=== PATIENT | male | born 2005 | race Caucasian/White ===

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

== ENCOUNTER → 2023-05-29 08:19 | Outpatient (CLI) | payer OTHER, SELFPAY ==
[2023-05-29 09:34] LABS: COVID-19 CEPHEID 4-PLEX PCR Negative (Negative); Influenza A - CEPHEID Flu A NEGATIVE (NEGATIVE); Influenza B - CEPHEID Flu B NEGATIVE (NEGATIVE); Respiratory Syncytial Virus Negative (Negative)
== END ==
PROVIDERS: PCP Family Medicine; Visit Provider Nurse Practitioner Family
DX: R00.0 Tachycardia, unspecified (principal); R63.0 Anorexia; R68.89 Other general symptoms and signs
CPT/HCPCS: 0241U

== ENCOUNTER 2023-05-29 09:04 | Emergency (ER) | payer OTHER, SELFPAY ==
[2023-05-29 09:08] VITALS: BP 138/98; PULSE 110; RESP 20; TEMP 36.7; O2SAT 99; BMI 17.0
--- NOTE | 2023-05-29 09:09 | PC.NURSE ---
Pt reports increase to medicine 2mg to 4mg ambilify. Pt states he had been taking ambilify for 2 weeks and had a medication increase one week ago. Pt reports increased anxiety, intermittent blurred vision, dry mouth, and retraction when peeing. Walk in clinic brought pt here for further eval. Pt alert and oriented.
--- NOTE | 2023-05-29 09:48 | ED.RECABL ---
HPI - Recheck/Abnormal Lab/Rx General Chief Complaint: Recheck/Abnormal Lab/Rx Stated Complaint: [facility] Time Seen by Provider: 05/29/23 09:10 Source: patient Mode of arrival: Wheelchair History of Present Illness HPI narrative: Patient 17-year-old history of anxiety, insomnia, eating disorder, depression presents today with palpitations. He recently had his Abilify dose increased from 2 mg to 4 mg. That happened 1 week ago. He reports not being able to sleep for a number of days. He feels like his heart is racing. He has some difficulty with urination but he is still able to urinate. He has no dizziness or lightheadedness. He is noted to be mildly tachycardic here in the ED He reports that he tried mirtazapine to help him sleep but anything like Benadryl or melatonin generally does not help him. He reports he did try marijuana but it had the opposite effect. Related Data Previous Rx's Medication Instructions Recorded fluticasone propionate 50 1 spray intranasal BID #16 grams 09/05/20 mcg/actuation nasal spray,suspension (Flonase Allergy Relief) sumatriptan succinate 25 mg tablet 25 mg PO PRN PRN Migraine Headache 11/13/22 (Imitrex) #30 tabs hydroxyzine HCl 25 mg tablet 25 mg PO QID PRN anxiety #30 tabs 01/14/23 olanzapine 10 mg tablet 10 mg PO DAILY #30 tabs 01/27/23 mirtazapine 15 mg tablet 15 mg PO BEDTIME #90 tabs 02/10/23 bupropion HCl 300 mg 24 hr tablet, 300 mg PO QAM #30 tabs 05/12/23 extended release lorazepam 1 mg tablet (Ativan) 1 mg PO BEDTIME PRN sleep #1 tab 05/29/23 Allergies Allergy/AdvReac Type Severity Reaction Status Date / Time No Known Drug Allergies Allergy Verified 05/29/23 08:12 Patient History Medical History Depression Migraine with aura and without status migrainosus, not intractable (05/05/17) Social History Smoking Status: Never smoker second hand exposure: No alcohol intake: never substance use type: does not use Smoking Status: Never smoker tobacco type: cigarettes alcohol intake frequency: 0-2 drinks per day Substance Use Type: marijuana Exam Initial Vital Signs Initial Vital Signs: Vital Signs Temperature 98.1 F 05/29/23 09:08 Pulse Rate 110 H 05/29/23 09:08 Respiratory Rate 20 05/29/23 09:08 Blood Pressure 138/98 H 05/29/23 09:08 Pulse Oximetry 99 05/29/23 09:08 Oxygen Delivery Method Room Air 05/29/23 09:08 GENERAL: Thin 17-year-old male HEENT: Head atraumatic,EOMI, pupils reactive, face symmetric, dry mucous membranes CARDIOVASCULAR: Tachycardic no murmurs regular RESPIRATORY: Breath sounds equal bilaterally, no wheezes rales or rhonchi. ABDOMEN: Soft, nontender. Normoactive bowel sounds all 4 quadrants. No guarding or rebound. EXTREMITIES: Normal range of motion, no clubbing or edema. Neurovascularly intact NEUROLOGICAL: Alert and oriented x4.Normal gait and speech. Cranial nerves II through XII grossly intact. SKIN: Warm, dry, no laceration, no petechiae, no rashes or lesions. Course Vital Signs Vital signs: Vital Signs - 8 hr 05/29/23 09:08 05/29/23 10:05 05/29/23 10:14 Temperature 98.1 F 98 F Pulse Rate 110 H 99 H 92 H Respiratory Rate 20 20 Blood Pressure 138/98 H 136/79 Pulse Oximetry 99 96 100 Oxygen Delivery Method Room Air Room Air MDM - Recheck/Abnormal Lab/Rx MDM Narrative Medical decision making narrative: Patient 17-year-old male presents today with palpitations. He is noted to be mildly tachycardic which slowly improve. He has continued insomnia which from records he has had previously. Lips are slightly dry. He does report some blurry vision which is a side effect of Abilify along with restlessness fatigue anxiety insomnia and headache. I suspect that he is reacting to his increased dose of Abilify. He has an appointment PCP in 3 days. At this time I recommend he go back to his Abilify 2 mg. I will give him 1 tablet of Ativan to help him relax and go to sleep. Heart rate initially was in the 130s however decreased to 110 and while I was in the room it was in the 90s. Discharge Plan Departure Patient Disposition: Home Clinical Impression: Adverse drug reaction Instructions: DI for Adverse Drug Reaction -- Other Activity Restrictions/Additional Instructions: *You have been diagnosed with drug reaction *What to do: At this time I think some of her symptoms are definitely related to the increase in your Abilify. Decreased her Abilify back to the regular dose. See your primary care doctor on Thursday. We will be 1 tablet of Ativan to help you sleep. *Continue to take medications as directed Abilify 2 mg daily (stop the 4 mg) Ativan 1 mg take once to help with sleep, be only get 1 tablet -do not drive while taking *Follow up with your primary care provider in 2-3 days or call [phone] *Return to ER if you should have increasing palpitations dizziness lightheadedness passing out or any new, worsening or concerning symptoms CONTROLLED SUBSTANCE DISCHARGE (Narcotoic/benzodiazepine/Flexeril/Phenergan) 1. You have been prescribed narcotic medications, it does have acetaminophen/Tylenol/paracetamol in it, DO NOT TAKE MORE THAN 4,00mg in 24 hours of Tylenol. TRAMADOL DOES NOT CONTAIN TYLENOL 2. Please understand that we cannot provide further refills of narcotics, benzodiazepines or controlled substances through the ED and her pain management will need to be through your provider. 3. While on these medications you cannot drive or operate heavy machinery. 4. You cannot sign legal documents or perform any duties such as this. 5. As long as you're taking opiate pain medications he should also be taking a stool softener such as Colace, Dulcolax, MiraLAX or prune juice, to help avoid constipation. Prescriptions: New lorazepam [Ativan] 1 mg tablet 1 mg PO BEDTIME PRN (Reason: sleep) Qty: 1 0RF No Action fluticasone propionate [Flonase Allergy Relief] 50 mcg/actuation spray,suspension 1 spray intranasal BID Qty: 16 2RF Rx Instructions: administer into each nostril olanzapine 10 mg tablet 10 mg PO DAILY Qty: 30 2RF hydroxyzine HCl 25 mg tablet 25 mg PO QID PRN (Reason: anxiety) Qty: 30 0RF mirtazapine 15 mg tablet 15 mg PO BEDTIME Qty: 90 3RF sumatriptan succinate [Imitrex] 25 mg tablet 25 mg PO PRN PRN (Reason: Migraine Headache) Qty: 30 0RF Rx Instructions: Take one tablet by mouth at onset of headache. If headache continues after 2 hours may repeat one tab. Max dose 2 tabs daily. bupropion HCl 300 mg tablet extended release 24 hr 300 mg PO QAM Qty: 30 2RF Referrals: Helena Calvillo MD [Primary Care Provider] - Stand Alone Forms: Patient Portal/API
[2023-05-29 10:05] VITALS: PULSE 99; O2SAT 96
[2023-05-29 10:14] VITALS: BP 136/79; PULSE 92; RESP 20; TEMP 36.6; O2SAT 100
== END 2023-05-29 10:15 | disposition home or self-care (01) ==
PROVIDERS: Emergency Provider Emergency Medicine; PCP Family Medicine
DX: R00.2 Palpitations (principal); R00.0 Tachycardia, unspecified; T43.595A Adverse effect of other antipsychotics and neuroleptics, initial encounter; Z20.822 Contact with and (suspected) exposure to COVID-19; R63.0 Anorexia; R68.89 Other general symptoms and signs
CPT/HCPCS: 0241U; 99283

== ENCOUNTER 2023-10-04 10:21 | Emergency (ER) | payer OTHER, SELFPAY ==
[2023-10-04] VITALS (21 sets, daily range): BP systolic 98–163; BP diastolic 57–100; PULSE 61–117; RESP 15–29; TEMP 36.8; O2SAT 95–99; BMI 17.3
[2023-10-04 11:05] LABS: Add Manual Diff / Slide Review NO; Basophils Absolute Auto 0 /uL (0-100); Basophils Percent Auto 0.2 % (0-2); Eosinophils Absolute Auto 0 /uL (0-450); Eosinophils Percent Auto 0.3 % (2-4); Hematocrit 47.5 % (41-53); Hemoglobin 15.9 g/dL (13.5-17.5); Lymphocytes Absolute Auto 800 /uL (1100-4500); Lymphocytes Percent Auto 11.4 % (25-40); Mean Corpuscular HGB Conc 33.5 % (30-36); Mean Corpuscular Hemoglobin 30.4 PG (26-34); Mean Corpuscular Volume 90.6 fL (80-100); Monocytes Absolute Auto 800 /uL (0-900); Monocytes Percent Auto 11.6 % (3-14); Neutrophils Absolute Auto 5300 /uL (1500-7000); Neutrophils Percent Auto 76.5 % (50-75); Platelet Count 284 X10^3/uL (150-400); Red Blood Cell Count 5.25 X10^6/uL (4.5-5.9); Red Cell Distribution Width 14.6 % (11.6-14.8); White Blood Cell Count 6.9 X10^3/uL (4.5-11.0)
[2023-10-04 11:18] LABS: Acetaminophen < 10 ug/mL (10-30); Albumin 5.3 g/dL (3.5-5.0); Albumin Globulin Ratio 1.5 (1.0-2.8); Alkaline Phosphatase 67 U/L (38-126); BUN Creatinine Ratio 20.5 (6-22); Bilirubin Total 1.5 mg/dL (0.2-1.3); Blood Urea Nitrogen 18 mg/dL (9-20); Calcium 10.7 mg/dL (8.4-10.2); Carbon Dioxide 24 mmol/L (22-32); Chloride 100 mmol/L (98-107); Estimated Glomerular Filt Rate > 60 mL/min (>60); Ethanol (ETOH) < 10 mg/dL; Globulin 3.5 g/dL (1.7-4.1); Glucose 97 mg/dL (70-100); Lipase 67 U/L (23-300); Potassium 4.5 mmol/L (3.4-5.1); Salicylate < 1.0 mg/dL (<20); Sodium 136 mmol/L (137-145); Total Protein 8.8 g/dL (6.3-8.2)
[2023-10-04] MEDS: SODIUM CHLORIDE 0.9% 1,000 ML 1000 ML IV (11:18)
[2023-10-04] MEDS: THIAMINE 200 MG in SODIUM CHLORIDE 0.9% 100 ML 408 MG IV (11:19)
[2023-10-04] MEDS: PHENobarbital 65 MG/ML VIAL 130 MG IV (11:22)
[2023-10-04 11:26] LABS: Alanine Aminotransferase 56 IU/L (<50); Aspartate Aminotransferase 77 IU/L (17-59); HEMOLYSIS 69 (0-50)
[2023-10-04 11:27] LABS: Appearance Urine UA CLEAR; Bilirubin Urine UA 2+ (NEGATIVE); Color Urine UA YELLOW; Glucose Urine UA NEGATIVE (Negative); Ketones Urine UA 1+ (NEGATIVE); Leukocyte Esterase Urine UA NEGATIVE (NEGATIVE); Nitrite Urine UA NEGATIVE (Negative); Occult Blood Urine UA NEGATIVE (Negative); Protein Urine UA 1+ (Negative); Specific Gravity Urine UA 1.025 (1.000-1.035)
[2023-10-04 11:33] LABS: UR Morphine/Opiate cutoff 300 Negative (Negative); Ur Creatinine Normal (Normal); Ur Specific Gravity Normal (Normal); Urine Amphetamines Negative (Negative); Urine Barbiturates Negative (Negative); Urine Benzodiazepines Negative (Negative); Urine Cocaine Negative (Negative); Urine MDMA Negative (Negative); Urine Methadone Negative (Negative); Urine Methamphetamines Negative (Negative); Urine Oxycodone Negative (Negative); Urine Phencyclidine Negative (Negative); Urine Tetrahydrocannabinol Positive (Negative); Urine Tricyclic Antidepressant Negative (Negative); Urine pH Normal (Normal)
[2023-10-04 11:35] LABS: Ictotest Urine Negative (Negative); RBC Urine 0-1/HPF (0-5/HPF); Urine Volume 10mL (spun); WBC Urine None Seen (0-5/HPF)
[2023-10-04 11:36] LABS: Bacteria Urine Few (2-10); Culture Indicated Urine Cult Not Indicated; Mucus Urine 2+ (Negative); Squamous Epithelial Cell Urine 0-1 /HPF (0-5/HPF)
--- NOTE | 2023-10-04 12:13 | ED_ITS ---
HPI - Alcohol General Chief Complaint: Toxicology Problem Stated Complaint: Detoxing Off alcohol Time Seen by Provider: 10/04/23 10:52 Source: patient and family Mode of arrival: Ambulatory History of Present Illness HPI narrative: Patient is a 18-year-old male who has history of depression anxiety insomnia presenting today with alcohol withdrawal. He reports that he started drinking heavily it may he was drinking 10-12 beers daily he cut back the percentage of his beers but started drinking up to 13 beers daily throughout the day. He drinks less yesterday that you related he started having the sensation of bugs crawling all over him he was tachycardic when he got here. He reports that he has nightmares he feels like he is depressed he denies suicidal or homicidal ideations. He stopped taking his Abilify and all other psychiatric medications. He is willing to go to detox Related Data Home Medications Medication Instructions Recorded Confirmed aripiprazole 2 mg tablet 2 mg PO DAILY 08/14/23 08/14/23 gabapentin 300 mg capsule mg PO 08/14/23 08/14/23 lamotrigine 25 mg tablet 50 mg PO DAILY 08/14/23 08/14/23 Allergies Allergy/AdvReac Type Severity Reaction Status Date / Time banana Allergy Verified 10/04/23 11:52 Patient History Medical History Depression Migraine with aura and without status migrainosus, not intractable (05/05/17) Social History Smoking Status: Current every day smoker second hand exposure: No alcohol intake: never substance use type: does not use Smoking Status: Current every day smoker tobacco type: cigarettes and vaping alcohol intake frequency: 3 or more drinks per day Alcohol type: beer and hard liquor Substance Use Type: does not use Exam Initial Vital Signs Initial Vital Signs: Vital Signs Temperature 98.3 F 10/04/23 10:37 Pulse Rate 117 H 10/04/23 10:37 Respiratory Rate 20 10/04/23 10:37 Blood Pressure 163/100 H 10/04/23 10:37 Pulse Oximetry 96 10/04/23 10:37 Oxygen Delivery Method Room Air 10/04/23 10:37 GENERAL: Alert in 18-year-old male and in no acute distress. HEENT: Head atraumatic,EOMI, pupils reactive, face symmetric, moist mucous membranes CARDIOVASCULAR: Regular rate and rhythm without murmurs, rubs or gallops. RESPIRATORY: Breath sounds equal bilaterally, no wheezes rales or rhonchi. ABDOMEN: Soft, nontender. Normoactive bowel sounds all 4 quadrants. No guarding or rebound. EXTREMITIES: Normal range of motion, no clubbing or edema. Neurovascularly intact NEUROLOGICAL: Alert and oriented x4.Normal gait and speech. Cranial nerves II through XII grossly intact. Mild tremors SKIN: Warm, dry, no laceration, no petechiae, no rashes or lesions. Course Orders Ordered: Discontinued Medications Aspirin (Aspirin Ec 81 Mg Tablet) 81 mg PO NOW ONE Stop: 10/04/23 18:15 Last Admin: 10/04/23 18:38 Dose: Not Given Documented By: RL Duloxetine HCl (Duloxetine 20 Mg Capsule) 20 mg PO DAILY RYAN Gabapentin (Gabapentin 300 Mg Capsule) 900 mg PO TID RYAN Sodium Chloride (Normal Saline 0.9%) 1,000 mls @ 1,000 mls/hr IV CONT RYAN Last Infusion: 10/04/23 13:47 Dose: Infused Documented By: Admin: 10/04/23 11:18 Dose: 1,000 mls/hr Documented By: RL Thiamine HCl 200 mg/ Sodium (Chloride) 102 mls @ 408 mls/hr IV NOW ONE Stop: 10/04/23 10:54 Last Infusion: 10/04/23 11:43 Dose: Infused Documented By: Admin: 10/04/23 11:19 Dose: 408 mls/hr Documented By: RL Ketorolac Tromethamine (Ketorolac 30 Mg/Ml Vial) 15 mg IV NOW ONE Stop: 10/04/23 18:01 Last Admin: 10/04/23 18:10 Dose: 15 mg Documented By: RL Lorazepam (Lorazepam 2 Mg/Ml Inj) 1 mg IV NOW ONE Stop: 10/04/23 18:12 Last Admin: 10/04/23 18:44 Dose: 1 mg Documented By: RL Metoprolol Tartrate (Metoprolol Ir 25 Mg Tablet) 25 mg PO BID [facility] Ondansetron HCl (Ondansetron 4 Mg/2 Ml Inj) 4 mg IV NOW ONE Stop: 10/04/23 16:22 Last Admin: 10/04/23 16:25 Dose: 4 mg Documented By: CANDIDA Pantoprazole Sodium (Pantoprazole 40 Mg Vial) 40 mg IV NOW ONE Stop: 10/04/23 18:01 Last Admin: 10/04/23 18:11 Dose: 40 mg Documented By: CANDIDA Phenobarbital (Phenobarbital 65 Mg/Ml Vial) 130 mg IV NOW ONE Stop: 10/04/23 10:54 Last Admin: 10/04/23 11:22 Dose: 130 mg Documented By: CANDIDA Vital Signs Vital signs: Vital Signs - 8 hr 10/04/23 10:37 10/04/23 10:51 10/04/23 11:00 Temperature 98.3 F Pulse Rate 117 H 104 H 101 H Respiratory Rate 20 27 H Blood Pressure 163/100 H Pulse Oximetry 96 99 99 Oxygen Delivery Method Room Air 10/04/23 11:30 10/04/23 11:32 10/04/23 11:32 Temperature Pulse Rate 98 H 99 H Respiratory Rate 21 29 H Blood Pressure 133/95 H Pulse Oximetry 99 99 Oxygen Delivery Method 10/04/23 12:00 10/04/23 12:00 10/04/23 12:30 Temperature Pulse Rate 96 H Respiratory Rate 15 Blood Pressure 114/73 115/74 Pulse Oximetry 96 Oxygen Delivery Method 10/04/23 12:30 10/04/23 13:00 10/04/23 13:00 Temperature Pulse Rate 93 H 95 H Respiratory Rate 20 25 H Blood Pressure 119/87 Pulse Oximetry 97 98 Oxygen Delivery Method 10/04/23 13:30 10/04/23 13:30 10/04/23 14:00 Temperature Pulse Rate 88 88 Respiratory Rate 16 18 Blood Pressure 129/81 Pulse Oximetry 97 95 Oxygen Delivery Method 10/04/23 14:00 10/04/23 14:30 10/04/23 14:30 Temperature Pulse Rate 84 Respiratory Rate 20 Blood Pressure 116/63 124/57 L Pulse Oximetry 96 Oxygen Delivery Method 10/04/23 15:00 10/04/23 15:00 10/04/23 15:30 Temperature Pulse Rate 68 66 Respiratory Rate 20 20 Blood Pressure 98/57 L Pulse Oximetry 95 97 Oxygen Delivery Method 10/04/23 15:31 10/04/23 15:31 10/04/23 16:00 Temperature Pulse Rate 65 Respiratory Rate 20 Blood Pressure 110/60 111/60 Pulse Oximetry 97 Oxygen Delivery Method 10/04/23 16:00 10/04/23 16:30 10/04/23 16:30 Temperature Pulse Rate 68 66 Respiratory Rate 18 18 Blood Pressure 109/66 Pulse Oximetry 97 97 Oxygen Delivery Method MDM - Alcohol Lab Data 10/04/23 10:58 10/04/23 10:58 Labs: Lab Results 10/04/23 10/04/23 10/04/23 Range/Units 10:58 10:58 16:14 WBC 6.9 (4.5-11.0) X10^3/uL RBC 5.25 (4.5-5.9) X10^6/uL Hgb 15.9 (13.5-17.5) g/dL Hct 47.5 (41-53) % MCV 90.6 (80-100) fL MCH 30.4 (26-34) PG MCHC 33.5 (30-36) % RDW 14.6 (11.6-14.8) % Plt Count 284 (150-400) X10^3/uL Neut % (Auto) 76.5 H (50-75) % Lymph % (Auto) 11.4 L (25-40) % [place] % (Auto) 11.6 (3-14) % Eos % (Auto) 0.3 L (2-4) % Baso % (Auto) 0.2 (0-2) % Neut # (Auto) 5300 (0537-5214) /uL Lymph # (Auto) 800 L (2296-0026) /uL [place] # (Auto) 800 (0-900) /uL Eos # (Auto) 0 (0-450) /uL Baso # (Auto) 0 (0-100) /uL Sodium 136 L (137-145) mmol/L Potassium 4.5 (3.4-5.1) mmol/L Chloride 100 (98-107) mmol/L Carbon Dioxide 24 (22-32) mmol/L BUN 18 (9-20) mg/dL Creatinine 0.88 (0.66-1.25) mg/dL Estimated GFR > 60 (>60) mL/min BUN/Creatinine Ratio 20.5 (6-22) Glucose 97 (70-100) mg/dL Calcium 10.7 H (8.4-10.2) mg/dL Total Bilirubin 1.5 H (0.2-1.3) mg/dL AST 77 H (17-59) IU/L ALT 56 H (<50) IU/L Alkaline Phosphatase 67 (38-126) U/L Total Protein 8.8 H (6.3-8.2) g/dL Albumin 5.3 H (3.5-5.0) g/dL Globulin 3.5 (1.7-4.1) g/dL Albumin/Globulin Ratio 1.5 (1.0-2.8) Lipase 67 (23-300) U/L Urine Color Yellow Urine Appearance Clear Urine pH 6.0 Normal (4.5-8.0) Ur Specific [place] 1.025 (1.000-1.035) Urine Protein 1+ H (Negative) Urine Glucose (UA) Negative (Negative) g/dL Urine Ketones 1+ H (NEGATIVE) Urine Occult Blood Negative (Negative) Urine Nitrate Negative (Negative) Urine Bilirubin 2+ H (NEGATIVE) Ur Bilirubin Confirm Negative (Negative) Urine Urobilinogen 4.0 H (0.2) E.U./dL Ur Leukocyte Esterase Negative (NEGATIVE) Urine RBC 0-1/hpf (0-5/HPF) Urine WBC None seen (0-5/HPF) Ur Squamous Epith Cells 0-1 /hpf (0-5/HPF) Urine Bacteria Few (2-10) H (None) Urine Mucus 2+ H (Negative) Ur Culture Indicated? Cult not indicated Vol Urine Centrifuged 10ml (spun) Salicylates < 1.0 (<20) mg/dL U Opiates 300ng/mL cut Negative (Negative) Ur Oxycodone Screen Negative (Negative) Urine Methadone Screen Negative (Negative) Acetaminophen < 10 (10-30) ug/mL Ur Barbiturates Screen Negative (Negative) U Tricyclic Antidepress Negative (Negative) Ur Phencyclidine Scrn Negative (Negative) Ur Amphetamines Screen Negative (Negative) U Methamphetamines Scrn Negative (Negative) Ur MDMA Scrn (Ecstasy) Negative (Negative) U Benzodiazepines Scrn Negative (Negative) Urine Cocaine Screen Negative (Negative) U Marijuana (THC) Screen Positive H (Negative) Urine Specific [place] Normal (Normal) Ethyl Alcohol < 10 ( - 10) mg/dL Ur Creatinine Normal (Normal) SARS-CoV-2 (PCR) Negative (Negative) MDM Narrative Medical decision making narrative: Patient is a 18-year-old male who presents today with alcohol withdrawal. He has been drinking beer heavily for some time. He has some and anxiety and crawling sensation on a skin. He also suffers from pretty severe depression and anxiety and has been self medicating. Denies suicidal ideation. Blood work has been reviewed he does have mild elevation of bilirubin 1.5 mild liver enzymes elevation as well AST 77 ALT 56 lipase 67 I suspect bilirubin liver enzymes or secondary to alcohol he has no right upper quadrant pain. He is complaining of some all over abdominal pain and discomfort no significant nausea or vomiting. He was offered food but declined. Social work evaluated [place] accepted Discharge Plan Departure Patient Disposition: Xfer Psychiatric Hosp Clinical Impression: Alcohol withdrawal Prescriptions: No Action aripiprazole 2 mg tablet 2 mg PO DAILY gabapentin 300 mg capsule PO lamotrigine 25 mg tablet 50 mg PO DAILY Referrals: Helena Calvillo MD [Primary Care Provider] -
--- NOTE | 2023-10-04 14:01 | CM.SWNOTE ---
SIEBEL DEVELOPER Assessment Note: SIEBEL DEVELOPER - Water Supply Technician Assessment SIEBEL DEVELOPER/Water Supply Technician Assessment Time Spent with Patient Start date 10/04/23 Visit Start Time 12:50 End date 10/04/23 Visit End Time 13:10 Total time Care Management spent on 20 minutes patient visit-in minutes Mental Health Screening Include Onset, Duration, Intensity Presenting Problem Patient presents to the ED requesting assistance with ETOH detox. Patient states he started drinking in June 2023 and has recently been drinking about 15 cans of beer a day, completing a 30-pack within two days. Patient reports last drink was at midnight on 10/03. Precipitating Event(s) Patient explains he has been feeling more anxious, especially socially, which is what started his binge drinking, Drinking is what helps me talk to more people, people actually like talking to me when I drink. Patient also reports that he has not been taking prescribed gabapentin (600mg) and abilify (25mg) daily since June 2023 (when he started drinking). Patient Strengths Patient is supported by his family (his mother, father, and sister). Patient is employed. Current Behavioral Health Provider(s) Patient works with a [facility], Provider, Ph. # mail order biller at [facility] in [place], ALEKSANDR Aburto (ph#). Patient gives consent for this SIEBEL DEVELOPER to notify his Provider of plan of care. Psych. Hx Mental Health and Chemical Patient has a previous medical Dependency history of anxiety, depression and bipolar 1. Patient has not been diagnosed with a substance use disorder - Utox shows pt is positive for THC. Family Hx of Behavioral Abuse None reported. Psychiatric Hospitalizations (date(s)/ Patient explains he has been location) admitted at [facility] in the past. Psychosocial information & Support Patient is a 18yo male, Systems resident of [place], lives with his family (mother, father, sister and two cats - Eliseo and Laury). School/Work Patient works at [employer]. Legal Concerns Legal Matters - Outstanding Issues None reported. Mental Status Orientation (Person/Place/Time) AOx3 Stated Mood Not too good with understanding my emotions. I am happy I am getting help but also nervous. Affect (Congruent with Mood?) Congruent with mood, flat affect Thought Content - Specify/Describe Auditory: Pt endorses hearing Obsessions, Delusions, Hallucinations murmuring during the day and a louder echoing voice when he is trying to sleep. Pt reports this voice before bed is loud and clear but he can never remember what the content of those statements are because they are usually nonsense. Visual: Patient explains he sees shadows shifting down the wall and black dots in the room. Patient reports he has some crawling sensations in his legs. Thought Processes (Parhtxg-Bwqgafmx-Kktp Logical, thought blocking Qjafhwuz-Hbrnjvlj-Kjkrmpcthm- Nxqewdaaffapyx-Bxtwexx-Yoejsyckojec- Thought Blocking) Speech (Eruvaz-Jrqm-Umgictc-Rapid-Soft- Slow, soft Loud-Pressured) Motor (Cywnba-Ezwpctmfo-Yygu-Other) Normal Insight (Drgq-Sjym-Zehy/Limited) Fair/limited Judgement (Xhhx-Gqsd-Stig/Limited) Fair/limited Impulse Control (Adequate-Impaired) Adequate Memory (Lrkvxxokh-Rnunxs-Cfvdan, Intact Impaired-Intact) Concentration (Intact-Impaired) Intact Attention (Intact-Impaired) Intact Behavior (Appropriate-Inappropriate) Appropriate Additional Comment Patient is calm, cooperative and communicative during assessment. Risk Assessment Suicidal Ideation (Plan) No Homicidal Ideation (Plan) No Comment Patient denies SI/HI at time of assessment. Patient reports previous thoughts of harming self and has history of self- harm (cutting) - most recent self-harm was in June 2023. Intervention Intervention SIEBEL DEVELOPER meets with patient. Patient reports wanting assistance with ETOH withdrawal and assistance with psychiatric medications as he has not been taking them as prescribed. SIEBEL DEVELOPER and patient discuss next steps. Patient explains he has history of inpatient at [facility] and is consenting this SIEBEL DEVELOPER to send referral there. Patient explains he is wanting to receive inpatient behavioral health hospitalization at this time with ETOH detox. At this time, it is the opinion of this SIEBEL DEVELOPER that patient would benefit from ETOH detox and psychiatric hospitalization for bipolar disorder with psychotic features. SIEBEL DEVELOPER informs ED provider, Dr. Samson, who indicates agreement. SIEBEL DEVELOPER informs ARACELIS Ovalle. Plan RA Plan Once patient is medically clear, ED staff will attempt to find inpatient placement for patient. LORE Ledezma
[2023-10-04] MEDS: ONDANSETRON 4 MG/2 ML INJ IV (16:25)
--- NOTE | 2023-10-04 16:42 | PC.NURSE ---
Patient has had room door closed per preference, during reassessment and patient check patient endorsed feeling hot and sweaty, dry heaving after eating food, raised his own hand and denies tremors but reported feeling tremulous, and abdominal pain. Patient was not objectively diaphoretic during assessment to hands or face and had not reported dry heaving at time of occurrence. Obtained order for zofran and administered. Educated patient that door to remain open as to better observe changes and to use call light for assistance. Patient acknowledged teaching. CIWA: 2 for reports of anxiety, headache, and nausea.
[2023-10-04 16:45] LABS: COVID19 -Nasal RAPID Negative (Negative)
--- NOTE | 2023-10-04 18:03 | CM.SWNOTE ---
ED CALIBRATION TESTER Note: ED CALIBRATION TESTER initiated bed search for inpatient BH treatment with co-occurring ETOH detox. CALIBRATION TESTER calls [facility], it was reported that there are limited beds available and to send a clinical packet. CALIBRATION TESTER sent clinical packet for review. CALIBRATION TESTER calls [facility], it was reported that there is 1 male bed available for co-occurring treatment, requesting a clinical packet. CALIBRATION TESTER sent clinical packet for review, including requested COVID test. CALIBRATION TESTER followed up with [facility] and it was reported that all male beds have been taken and pt can be reviewed for tomorrow, if necessary. CALIBRATION TESTER received a call from Daniella at [facility], it was reported that pt has been accepted for [facility]/BH inpatient services. [facility]: [id number] [place] [address] Accepting Provider: ALEKSANDR Solis RN Report #: [phone], request Charge Nurse for Central Unit. Pending transport ETA confirmation. Pt and family notified with RN present. ED Provider notified of acceptance. Plan: Pt to transfer to [facility] with an acceptance time of 1999 via BLS transport. LORE Ledezma
[2023-10-04] MEDS: KETOROLAC 30 MG/ML VIAL 15 MG IV (18:10)
[2023-10-04] MEDS: PANTOPRAZOLE 40 MG VIAL IV (18:11)
[2023-10-04] MEDS: LORazepam 2 MG/ML INJ 1 MG IV (18:44)
== END 2023-10-04 19:34 ==
PROVIDERS: Emergency Provider Emergency Medicine; PCP Family Medicine
DX: F10.139 Alcohol abuse with withdrawal, unspecified (principal); Z11.52 Encounter for screening for COVID-19
CPT/HCPCS: 36415; 80053; 80305; 80320; 80329; 81001; 83690; 85025; 87635; 96365; 96375; 99284; G0480; J1885; J2060; J2405; J2470; J2560

== ENCOUNTER 2024-04-02 12:26 | Emergency (ER) | payer OTHER, SELFPAY ==
[2024-04-02 12:40] VITALS: BP 133/80; PULSE 83; RESP 18; TEMP 36.9; O2SAT 98; BMI 16.5
--- NOTE | 2024-04-02 13:15 | ED.PSYCH ---
HPI - Psych <Dee Manzo PA-C - Last Filed: 04/02/24 19:57> General Chief Complaint: Psychiatric Symptoms Stated Complaint: Feeling disassociated for past week Time Seen by Provider: 04/02/24 13:13 Source: patient Mode of arrival: Ambulatory History of Present Illness HPI Narrative: This is a 18-year-old male with a history of anxiety, depression, bipolar 1 and migraine presenting with concern for feeling extremely anxious and as if he has in a state of ongoing panic. States he has felt abnormal for about a week. Patient states that he has been off alcohol for a full month and doing okay and about a week ago he drank 2 tall boys. He states he felt okay the morning after this but by evening he was feeling very uncomfortable and tried smoking marijuana which he does on a nearly daily basis to calm him down and states that he did not like how it made him feel. Since that time he has not smoked anymore marijuana or had any alcohol. He also denies any recreational drug use. 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 He says he has had visual symptoms like this in the past when his anxiety is severe but they have not been as pronounced or lasted for so many days. He says he has not been sleeping very well he is able to fall asleep for a few hours at a time at night but wakes up frequently and has difficulty getting back to sleep and thus has had intermittent sleep for the past 5-7 days. He also states that last night after taking a trazodone to help him sleep (which he does relatively frequently) he did feel like there were sounds in the house around him that were similar to muffled voices. He has heard something like this in the past but again not as pronounced. Today he denies any SI or HI. He states that he believes he may need a head CT as he has a history of TBI and feels that things are not right in his head. Denies hitting his head recently. He does have a mild headache today. He states he is definitely interested in talking to social work and would consider going into inpatient facility if he meets criteria. He is open to/would like to have labs evaluation today. He does state that he has a unhealthy environment at home feels his mother is not available and his father is a nurse assist. He states his stress levels have not increased recently and he is unsure why he is feeling so ?dissociated?. Related Data Home Medications Medication Instructions Recorded Confirmed lamotrigine 25 mg tablet 50 mg PO DAILY 08/14/23 04/02/24 gabapentin 600 mg tablet mg PO 3XD 04/02/24 04/02/24 hydroxyzine pamoate 25 mg capsule mg PO 04/02/24 04/02/24 risperidone 0.25 mg tablet 0.25 mg PO DAILY 04/02/24 04/02/24 trazodone 100 mg tablet mg PO 04/02/24 04/02/24 trazodone 150 mg tablet mg PO 04/02/24 04/02/24 Allergies Allergy/AdvReac Type Severity Reaction Status Date / Time banana Allergy Verified 04/02/24 12:45 Review of Systems <Dee Mazno PA-C - Last Filed: 04/02/24 19:57> Review of Systems Narrative: See HPI Patient History <Dee Manzo PA-C - Last Filed: 04/02/24 19:57> Medical History Depression Migraine with aura and without status migrainosus, not intractable (05/05/17) Social History Smoking Status: Current every day smoker second hand exposure: No alcohol intake: never substance use type: does not use Smoking Status: Current every day smoker tobacco type: vaping alcohol intake frequency: 3 or more drinks per day Alcohol type: beer and hard liquor Exam <Dee Manzo PA-C - Last Filed: 04/02/24 19:57> Narrative Exam Narrative: GENERAL: 18 year old patient appears stated age. Well-developed patient, in mild distress. Patient is very thin, borderline cachectic. HEAD: Atraumatic. Normocephalic. EYES: Pupils equal round and reactive. Extraocular motions intact. No scleral icterus. No injection or drainage. ENT: Nose without bleeding, purulent drainage. Throat without erythema, tonsillar hypertrophy or exudate. Airway patent. NECK: Trachea midline. Non tender CARDIOVASCULAR: Regular rate and rhythm without murmurs, gallops, or rubs. RESPIRATORY: Clear to auscultation. Breath sounds equal bilaterally. No wheezes, rales, or rhonchi. GASTROINTESTINAL: Abdomen soft, non-tender, nondistended. EXTREMITIES: No edema or joint tenderness. BACK: Nontender without deformity or crepitance. No flank tenderness. NEURO: AOx3. Cranial nerves intact II through XII SKIN: No rash or erythema of visible areas Initial Vital Signs Initial Vital Signs: Vital Signs Temperature 98.5 F 04/02/24 12:40 Pulse Rate 83 04/02/24 12:40 Respiratory Rate 18 04/02/24 12:40 Blood Pressure 133/80 04/02/24 12:40 Pulse Oximetry 98 04/02/24 12:40 Oxygen Delivery Method Room Air 04/02/24 12:40 <DO Joe Velez Last Filed: 04/06/24 18:19> Initial Vital Signs Initial Vital Signs: Vital Signs Temperature 98.5 F 04/02/24 12:40 Pulse Rate 83 04/02/24 12:40 Respiratory Rate 18 04/02/24 12:40 Blood Pressure 133/80 04/02/24 12:40 Pulse Oximetry 98 04/02/24 12:40 Oxygen Delivery Method Room Air 04/02/24 12:40 Course <Dee Manzo PA-C - Last Filed: 04/02/24 19:57> Orders Ordered: Discontinued Medications Acetaminophen (Acetaminophen 325 Mg Tablet) 650 mg PO NOW ONE Stop: 04/02/24 16:46 Last Admin: 04/02/24 17:19 Dose: 650 mg Documented By: Vital Signs Vital signs: Vital Signs - 8 hr 04/02/24 12:40 04/02/24 17:21 Temperature 98.5 F 98.4 F Pulse Rate 83 66 Respiratory Rate 18 18 Blood Pressure 133/80 112/65 Pulse Oximetry 98 98 Oxygen Delivery Method Room Air Room Air <DO Joe Velez Last Filed: 04/06/24 18:19> Orders Ordered: Discontinued Medications Acetaminophen (Acetaminophen 325 Mg Tablet) 650 mg PO NOW ONE Stop: 04/02/24 16:46 Last Admin: 04/02/24 17:19 Dose: 650 mg Documented By: Vital Signs Vital signs: Vital Signs - 8 hr 04/02/24 12:40 04/02/24 17:21 Temperature 98.5 F 98.4 F Pulse Rate 83 66 Respiratory Rate 18 18 Blood Pressure 133/80 112/65 Pulse Oximetry 98 98 Oxygen Delivery Method Room Air Room Air MDM - Psych <Dee Manzo PA-C - Last Filed: 04/02/24 19:57> Differential Diagnosis Differential diagnosis: Likely acute psychosis, bipolar disorder and acute anxiety Medical Records Attestation: I reviewed the patient's medical records. Lab Data Attestation: I reviewed the patient's lab results. 04/02/24 14:49 04/02/24 14:49 Labs: Lab Results 04/02/24 04/02/24 Range/Units 14:20 14:49 WBC 7.4 (4.5-11.0) X10^3/uL RBC 4.50 (4.5-5.9) X10^6/uL Hgb 13.4 L (13.5-17.5) g/dL Hct 39.7 L (41-53) % MCV 88.2 (80-100) fL MCH 29.7 (26-34) PG MCHC 33.7 (30-36) % RDW 13.4 (11.6-14.8) % Plt Count 261 (150-400) X10^3/uL Neut % (Auto) 73.2 (50-75) % Lymph % (Auto) 18.9 L (25-40) % [place] % (Auto) 7.0 (3-14) % Eos % (Auto) 0.2 L (2-4) % Baso % (Auto) 0.7 (0-2) % Neut # (Auto) 5400 (4049-6657) /uL Lymph # (Auto) 1400 (0420-5821) /uL [place] # (Auto) 500 (0-900) /uL Eos # (Auto) 0 (0-450) /uL Baso # (Auto) 100 (0-100) /uL Sodium 141 (137-145) mmol/L Potassium 3.9 (3.4-5.1) mmol/L Chloride 108 H (98-107) mmol/L Carbon Dioxide 25 (22-32) mmol/L BUN 13 (9-20) mg/dL Creatinine 0.81 (0.66-1.25) mg/dL Estimated GFR > 60 (>60) mL/min BUN/Creatinine Ratio 16.0 (6-22) Glucose 81 (70-100) mg/dL Calcium 9.6 (8.4-10.2) mg/dL Total Bilirubin 0.6 (0.2-1.3) mg/dL AST 30 (17-59) IU/L ALT 17 (<50) IU/L Alkaline Phosphatase 64 (38-126) U/L Total Protein 7.9 (6.3-8.2) g/dL Albumin 4.9 (3.5-5.0) g/dL Globulin 3.0 (1.7-4.1) g/dL Albumin/Globulin Ratio 1.6 (1.0-2.8) TSH 0.97 (0.47-4.68) uIU/mL U Opiates 300ng/mL cut Negative (Negative) Ur Oxycodone Screen Negative (Negative) Urine Methadone Screen Negative (Negative) Ur Barbiturates Screen Negative (Negative) U Tricyclic Antidepress Negative (Negative) Ur Phencyclidine Scrn Negative (Negative) Ur Amphetamines Screen Negative (Negative) U Methamphetamines Scrn Negative (Negative) Ur MDMA Scrn (Ecstasy) Negative (Negative) U Benzodiazepines Scrn Negative (Negative) Urine Cocaine Screen Negative (Negative) U Marijuana (THC) Screen Positive H (Negative) Urine pH Normal (Normal) Urine Specific [place] Normal (Normal) Ethyl Alcohol < 10 ( - 10) mg/dL Ur Creatinine Normal (Normal) Urine Dip Bedside Urine Glucose Negative Bedside Urine Bilirubin - Negative Bedside Urine Ketone - Negative Urine Specific [place] 1.010 Bedside Urine Occult Blood - Negative Bedside Urine pH 7.5 Bedside Urine Protein - Negative Bedside Urine Urobilinogen - Negative Bedside Urine Nitrite - Negative Bedside Urine Leukocytes - Negative Esterase MDM Narrative Medical decision making narrative: 18-year-old male with a history of anxiety, bipolar, depression and migraine presents with concern for feeling dissociated for the past week. History is somewhat concerning for auditory and visual hallucinations. However these do seem mild. And patient has experienced before. He has no SI or HI today. Labs obtained to evaluate and he meets with case management social worker. Labs are unremarkable THC in his urine which is expected. Patient amenable to inpatient however he does not meet criteria at this time and is open to IOP and is given access to crisis team information as well. Patient's mother also comes to the emergency department as and is in the loop regarding these plans. Patient was comfortable going home at this time he has given a note for work for 3 days off. He will reach out if his symptoms worsen and or do not improve. Return precautions provided, follow-up plan discussed, all questions answered. <Sushma Cotto, - Last Filed: 04/06/24 18:19> Lab Data Labs: Lab Results 04/02/24 04/02/24 Range/Units 14:20 14:49 WBC 7.4 (4.5-11.0) X10^3/uL RBC 4.50 (4.5-5.9) X10^6/uL Hgb 13.4 L (13.5-17.5) g/dL Hct 39.7 L (41-53) % MCV 88.2 (80-100) fL MCH 29.7 (26-34) PG MCHC 33.7 (30-36) % RDW 13.4 (11.6-14.8) % Plt Count 261 (150-400) X10^3/uL Neut % (Auto) 73.2 (50-75) % Lymph % (Auto) 18.9 L (25-40) % [place] % (Auto) 7.0 (3-14) % Eos % (Auto) 0.2 L (2-4) % Baso % (Auto) 0.7 (0-2) % Neut # (Auto) 5400 (3915-2595) /uL Lymph # (Auto) 1400 (4323-0736) /uL [place] # (Auto) 500 (0-900) /uL Eos # (Auto) 0 (0-450) /uL Baso # (Auto) 100 (0-100) /uL Sodium 141 (137-145) mmol/L Potassium 3.9 (3.4-5.1) mmol/L Chloride 108 H (98-107) mmol/L Carbon Dioxide 25 (22-32) mmol/L BUN 13 (9-20) mg/dL Creatinine 0.81 (0.66-1.25) mg/dL Estimated GFR > 60 (>60) mL/min BUN/Creatinine Ratio 16.0 (6-22) Glucose 81 (70-100) mg/dL Calcium 9.6 (8.4-10.2) mg/dL Total Bilirubin 0.6 (0.2-1.3) mg/dL AST 30 (17-59) IU/L ALT 17 (<50) IU/L Alkaline Phosphatase 64 (38-126) U/L Total Protein 7.9 (6.3-8.2) g/dL Albumin 4.9 (3.5-5.0) g/dL Globulin 3.0 (1.7-4.1) g/dL Albumin/Globulin Ratio 1.6 (1.0-2.8) TSH 0.97 (0.47-4.68) uIU/mL U Opiates 300ng/mL cut Negative (Negative) Ur Oxycodone Screen Negative (Negative) Urine Methadone Screen Negative (Negative) Ur Barbiturates Screen Negative (Negative) U Tricyclic Antidepress Negative (Negative) Ur Phencyclidine Scrn Negative (Negative) Ur Amphetamines Screen Negative (Negative) U Methamphetamines Scrn Negative (Negative) Ur MDMA Scrn (Ecstasy) Negative (Negative) U Benzodiazepines Scrn Negative (Negative) Urine Cocaine Screen Negative (Negative) U Marijuana (THC) Screen Positive H (Negative) Urine pH Normal (Normal) Urine Specific [place] Normal (Normal) Ethyl Alcohol < 10 ( - 10) mg/dL Ur Creatinine Normal (Normal) Urine Dip Bedside Urine Glucose Negative Bedside Urine Bilirubin - Negative Bedside Urine Ketone - Negative Urine Specific [place] 1.010 Bedside Urine Occult Blood - Negative Bedside Urine pH 7.5 Bedside Urine Protein - Negative Bedside Urine Urobilinogen - Negative Bedside Urine Nitrite - Negative Bedside Urine Leukocytes - Negative Esterase ECG Data Attestation: I personally reviewed and interpreted this ECG as follows: Interpretation: Sinus rhythm marked sinus arrhythmia rate of 70 NC 142 QRS 88 QTC of 403, no acute ST changes. Rightward axis. Discharge Plan Departure Patient Disposition: Home Clinical Impression: Acute anxiety Activity Restrictions/Additional Instructions: *You have been diagnosed with [acute anxiety] *What to do: *Please continue to take your regular medications as directed. [ ] New medication prescriptions sent to your pharmacy: [ ] [ ] New medication written as a paper prescription [ X] No new medications given *Please follow up with your primary care provider in 2-3 days, call for an appointment. Let them know you were seen in the Emergency Department and that we ask that you be seen in follow up. We will electronically transmit a record of today's note if your PCP is in our system. We checked her labs today and they all looked fine. We also had you meet with our case management social worker and she has a you up with an intensive outpatient plan as well as access to crisis team. It is important that you reach out if you feel you are having thoughts of self-harm or harming others or generally feeling like her symptoms are worsening. You already have the prescription for hydroxyzine to use started yesterday. I would encourage you to go ahead and take this 3 times daily for the next 2-3 days and see if this is helping. You can also talk to your provider about other options for medications or possibly changing her medications to help with your symptoms if this is not helping. I hope that you feel better soon. I did provide a work note for you for the next 3 days off. *If you do not have a primary care provider please contact the [facility] Resource line at [phone]. They will ask some questions about your medical history and help get you set up with a doctor in the community. *Return to Emergency Department if you should have any new, worsening or concerning symptoms, such as [fever greater than 101 F, shaking chills, worsening pain, persistent vomiting or other bothersome symptoms] Prescriptions: No Action lamotrigine 25 mg tablet 50 mg PO DAILY trazodone 100 mg tablet PO gabapentin 600 mg tablet PO 3XD risperidone 0.25 mg tablet 0.25 mg PO DAILY hydroxyzine pamoate 25 mg capsule PO Patient Comments: [NO ORIGINAL SIG] trazodone 150 mg tablet PO Referrals: Helena Calvillo MD [Primary Care Provider] - Stand Alone Forms: Patient Portal/API/Survey, Work Release Note ED Sign-out <Sushma Cotto DO - Last Filed: 04/06/24 18:19> Cosign ED Attending Radhaature Attestation: I was immediately available in the department for consultation.
--- NOTE | 2024-04-02 14:25 | EKG_ITS ---
[place] [id number] [place] [id number] Test Date: 2024-04-02 Pat Name: Jose J Perez Department: [facility] Room: Gender: Male Ore Mixer: DELFINO : 2005 Requested By: Order Number: [id number] Reading MD: Yandel Rueda Measurements Intervals [place] Rate: 70 P: 77 GA: 142 QRS: 92 QRSD: 88 T: 67 QT: 374 QTc: 403 Interpretive Statements Sinus rhythm with marked sinus arrhythmia Rightward axis Electronically Signed On 04-03-2024 8:40:23 PST by Yandel Rueda
[2024-04-02 14:32] LABS: Ur Creatinine Normal (Normal); Ur Specific Gravity Normal (Normal); Urine THC Positive (Negative); Urine pH Normal (Normal)
[2024-04-02 14:33] LABS: Urine Amphetamines Negative (Negative); Urine Barbiturates Negative (Negative); Urine Benzodiazepines Negative (Negative); Urine Cocaine Negative (Negative); Urine MDMA Negative (Negative); Urine Methadone Negative (Negative); Urine Methamphetamines Negative (Negative); Urine Opiates Negative (Negative); Urine Oxycodone Negative (Negative); Urine Phencyclidine Negative (Negative); Urine Tricyclic Antidepressant Negative (Negative)
[2024-04-02 14:59] LABS: Add Manual Diff / Slide Review NO; Basophils Absolute Auto 100 /uL (0-100); Basophils Percent Auto 0.7 % (0-2); Eosinophils Absolute Auto 0 /uL (0-450); Eosinophils Percent Auto 0.2 % (2-4); Hematocrit 39.7 % (41-53); Hemoglobin 13.4 g/dL (13.5-17.5); Lymphocytes Absolute Auto 1400 /uL (1100-4500); Lymphocytes Percent Auto 18.9 % (25-40); Mean Corpuscular HGB Conc 33.7 % (30-36); Mean Corpuscular Hemoglobin 29.7 PG (26-34); Mean Corpuscular Volume 88.2 fL (80-100); Monocytes Absolute Auto 500 /uL (0-900); Neutrophils Absolute Auto 5400 /uL (1500-7000); Neutrophils Percent Auto 73.2 % (50-75); Platelet Count 261 X10^3/uL (150-400); Red Cell Distribution Width 13.4 % (11.6-14.8); White Blood Cell Count 7.4 X10^3/uL (4.5-11.0)
[2024-04-02 15:11] LABS: Alanine Aminotransferase 17 IU/L (<50); Albumin 4.9 g/dL (3.5-5.0); Albumin Globulin Ratio 1.6 (1.0-2.8); Alkaline Phosphatase 64 U/L (38-126); Aspartate Aminotransferase 30 IU/L (17-59); Bilirubin Total 0.6 mg/dL (0.2-1.3); Blood Urea Nitrogen 13 mg/dL (9-20); Calcium 9.6 mg/dL (8.4-10.2); Carbon Dioxide 25 mmol/L (22-32); Chloride 108 mmol/L (98-107); Estimated Glomerular Filt Rate > 60 mL/min (>60); Ethanol (ETOH) < 10 mg/dL; Glucose 81 mg/dL (70-100); HEMOLYSIS < 15 (0-50); Potassium 3.9 mmol/L (3.4-5.1); Sodium 141 mmol/L (137-145); Total Protein 7.9 g/dL (6.3-8.2)
[2024-04-02 15:57] LABS: TSH w/ Reflex to FT4 0.97 uIU/mL (0.47-4.68)
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
[2024-04-02] MEDS: ACETAMINOPHEN 325 MG TABLET 650 MG PO (17:19)
[2024-04-02 17:21] VITALS: BP 112/65; PULSE 66; RESP 18; TEMP 36.9; O2SAT 98
== END 2024-04-02 17:22 | disposition home or self-care (01) ==
PROVIDERS: Emergency Provider Student in an Organized Health Care Education/Training Program; PCP Family Medicine
DX: F41.9 Anxiety disorder, unspecified (principal); F12.90 Cannabis use, unspecified, uncomplicated; I49.8 Other specified cardiac arrhythmias
CPT/HCPCS: 80053; 80305; 80320; 81003; 84443; 85025; 93005; 99284

== ENCOUNTER → 2024-04-09 08:33 | Outpatient (CLI) | payer OTHER, SELFPAY ==
[2024-04-09 10:12] LABS: Add Manual Diff / Slide Review NO; Basophils Absolute Auto 0 /uL (0-100); Basophils Percent Auto 0.9 % (0-2); Eosinophils Absolute Auto 0 /uL (0-450); Eosinophils Percent Auto 0.6 % (2-4); Hematocrit 43.6 % (41-53); Hemoglobin 14.7 g/dL (13.5-17.5); Lymphocytes Absolute Auto 1300 /uL (1100-4500); Lymphocytes Percent Auto 41.1 % (25-40); Mean Corpuscular HGB Conc 33.8 % (30-36); Mean Corpuscular Hemoglobin 29.9 PG (26-34); Mean Corpuscular Volume 88.7 fL (80-100); Monocytes Absolute Auto 300 /uL (0-900); Monocytes Percent Auto 8.2 % (3-14); Neutrophils Absolute Auto 1600 /uL (1500-7000); Neutrophils Percent Auto 49.2 % (50-75); Platelet Count 272 X10^3/uL (150-400); Red Blood Cell Count 4.92 X10^6/uL (4.5-5.9); Red Cell Distribution Width 13.3 % (11.6-14.8); White Blood Cell Count 3.2 X10^3/uL (4.5-11.0)
[2024-04-09 10:20] LABS: INR 1.2 (0.9-1.3); Prothrombin Time 13.2 SECONDS (9.4-12.5)
[2024-04-09 10:28] LABS: Alanine Aminotransferase 19 IU/L (<50); Albumin 5.3 g/dL (3.5-5.0); Albumin Globulin Ratio 1.9 (1.0-2.8); Alkaline Phosphatase 57 U/L (38-126); Aspartate Aminotransferase 30 IU/L (17-59); BUN Creatinine Ratio 28.3 (6-22); Bilirubin Total 0.9 mg/dL (0.2-1.3); Blood Urea Nitrogen 26 mg/dL (9-20); Calcium 10.4 mg/dL (8.4-10.2); Carbon Dioxide 28 mmol/L (22-32); Chloride 103 mmol/L (98-107); Estimated Glomerular Filt Rate > 60 mL/min (>60); Globulin 2.8 g/dL (1.7-4.1); Glucose 87 mg/dL (70-100); HEMOLYSIS < 15 (0-50); Magnesium 1.9 mg/dL (1.6-2.3); Phosphorous 3.8 mg/dL (4.5-5.5); Potassium 4.8 mmol/L (3.4-5.1); Sodium 139 mmol/L (137-145); Total Protein 8.1 g/dL (6.3-8.2)
[2024-04-09 10:59] LABS: TSH w/ Reflex to FT4 1.37 uIU/mL (0.47-4.68)
[2024-04-09 17:16] LABS: Vitamin D 25 Hydroxy (D3) 17.9 ng/mL (30.0-100.0)
[2024-04-12 12:08] LABS: Leptin < 0.5 ng/mL (.)
== END ==
LOC: LAB 08:34
PROVIDERS: PCP Family Medicine; Referring Provider Family Medicine; Visit Provider Family Medicine
DX: F50.9 Eating disorder, unspecified (principal)
CPT/HCPCS: 36415; 80053; 82306; 83520; 83735; 84100; 84402; 84403; 84443; 85025; 85610

== ENCOUNTER 2024-04-13 00:02 | Emergency (ER) | payer OTHER, SELFPAY ==
[2024-04-13] VITALS (8 sets, daily range): BP systolic 103–136; BP diastolic 60–88; PULSE 58–91; RESP 16–18; TEMP 36.8; O2SAT 92–99; BMI 16.2
[2024-04-13 01:01] LABS: Alanine Aminotransferase 27 IU/L (<50); Albumin Globulin Ratio 1.7 (1.0-2.8); Alkaline Phosphatase 54 U/L (38-126); Aspartate Aminotransferase 38 IU/L (17-59); BUN Creatinine Ratio 36.5 (6-22); Bilirubin Total 0.3 mg/dL (0.2-1.3); Blood Urea Nitrogen 27 mg/dL (9-20); Calcium 10.1 mg/dL (8.4-10.2); Carbon Dioxide 24 mmol/L (22-32); Chloride 106 mmol/L (98-107); Estimated Glomerular Filt Rate > 60 mL/min (>60); Glucose 115 mg/dL (70-100); HEMOLYSIS 16 (0-50); Lipase 174 U/L (23-300); Potassium 3.7 mmol/L (3.4-5.1); Sodium 139 mmol/L (137-145)
[2024-04-13 01:03] LABS: Add Manual Diff / Slide Review NO; Basophils Absolute Auto 0 /uL (0-100); Basophils Percent Auto 0.3 % (0-2); Eosinophils Absolute Auto 0 /uL (0-450); Eosinophils Percent Auto 0.6 % (2-4); Hematocrit 39.2 % (41-53); Hemoglobin 13.2 g/dL (13.5-17.5); Lymphocytes Absolute Auto 1900 /uL (1100-4500); Lymphocytes Percent Auto 22.4 % (25-40); Mean Corpuscular HGB Conc 33.8 % (30-36); Mean Corpuscular Hemoglobin 29.6 PG (26-34); Mean Corpuscular Volume 87.6 fL (80-100); Monocytes Absolute Auto 700 /uL (0-900); Monocytes Percent Auto 8.8 % (3-14); Neutrophils Absolute Auto 5700 /uL (1500-7000); Neutrophils Percent Auto 67.9 % (50-75); Platelet Count 250 X10^3/uL (150-400); Red Blood Cell Count 4.47 X10^6/uL (4.5-5.9); Red Cell Distribution Width 13.3 % (11.6-14.8); White Blood Cell Count 8.4 X10^3/uL (4.5-11.0)
--- NOTE | 2024-04-13 05:27 | ED.ABDPAIN ---
HPI - Abdominal Pain General Chief Complaint: Abdominal Pain Stated Complaint: dry mouth, hard to swallow and haven't slept 2 day Time Seen by Provider: 04/13/24 05:04 Source: patient Mode of arrival: Ambulatory History of Present Illness HPI narrative: 18-year-old male with history of bipolar disorder, has not been taking his chronic medications for some time, complains of one-week duration of diffuse abdominal discomfort. Last bowel movement few days ago. No black or red stool. No injury or trauma new activities. No nausea or vomiting. No painful or frequent urination. States that mother had him take powdery medicine (?miralax) for treatment of suspected constipation. Related Data Home Medications Medication Instructions Recorded Confirmed risperidone 0.25 mg tablet 0.25 mg PO DAILY 04/02/24 04/13/24 gabapentin 600 mg tablet mg PO BID 04/08/24 04/13/24 hydroxyzine pamoate 25 mg capsule mg PO BID 04/08/24 04/13/24 Previous Rx's Medication Instructions Recorded lorazepam 0.5 mg tablet 0.5 mg PO DAILY PRN anxiety #2 tabs 04/08/24 lactulose 10 gram/15 mL oral 20 g (30 mL) PO BID #300 mL 04/13/24 solution Allergies Allergy/AdvReac Type Severity Reaction Status Date / Time banana Allergy Verified 04/13/24 15:56 Patient History Medical History Depression Migraine with aura and without status migrainosus, not intractable (05/05/17) Social History Smoking Status: Current every day smoker second hand exposure: No alcohol intake: never substance use type: does not use Smoking Status: Current every day smoker tobacco type: vaping alcohol intake frequency: 3 or more drinks per day Alcohol type: beer and hard liquor Exam Narrative Exam Narrative: GENERAL: Well-developed patient, in mild distress. HEAD: Atraumatic. Normocephalic. EYES: Pupils equal round and reactive. Extraocular motions intact. No scleral icterus. No injection or drainage. ENT: Nose without bleeding, purulent drainage. Throat without erythema, tonsillar hypertrophy or exudate. Airway patent. NECK: Trachea midline. Non tender CARDIOVASCULAR: Regular rate and rhythm without murmurs, gallops, or rubs. RESPIRATORY: Clear to auscultation. Breath sounds equal bilaterally. No wheezes, rales, or rhonchi. GASTROINTESTINAL: Abdomen soft, non-tender, nondistended. EXTREMITIES: No edema or joint tenderness. BACK: Nontender without deformity or crepitance. No flank tenderness. NEURO: AOx3. Motor functions grossly nonfocal SKIN: No rash or erythema of visible areas Initial Vital Signs Initial Vital Signs: Vital Signs Temperature 98.3 F 04/13/24 00:22 Pulse Rate 91 H 04/13/24 00:22 Respiratory Rate 16 04/13/24 00:22 Blood Pressure 136/88 04/13/24 00:22 Pulse Oximetry 98 04/13/24 00:22 Oxygen Delivery Method Room Air 04/13/24 00:22 Course Orders Ordered: Discontinued Medications Lactulose (Lactulose 20 Gm/30 Ml Solution) 20 gm PO NOW ONE Stop: 04/13/24 06:02 Last Admin: 04/13/24 06:07 Dose: 20 gm Documented By: JAROCHO Ondansetron HCl (Ondansetron 4 Mg/2 Ml Inj) 4 mg IV NOW PRN PRN Reason: Nausea And Vomiting Ondansetron HCl (Ondansetron 4 Mg Odt) 4 mg PO NOW PRN PRN Reason: Nausea And Vomiting Vital Signs Vital signs: Vital Signs - 8 hr 04/13/24 00:22 04/13/24 03:29 04/13/24 03:30 Temperature 98.3 F Pulse Rate 91 H 82 Respiratory Rate 16 Blood Pressure 136/88 126/85 Pulse Oximetry 98 99 Oxygen Delivery Method Room Air 04/13/24 03:30 04/13/24 04:00 04/13/24 04:00 Temperature Pulse Rate 78 80 Respiratory Rate Blood Pressure 114/66 Pulse Oximetry 99 97 Oxygen Delivery Method Room Air 04/13/24 04:30 04/13/24 04:30 04/13/24 05:00 Temperature Pulse Rate 76 61 Respiratory Rate Blood Pressure 112/66 Pulse Oximetry 98 92 Oxygen Delivery Method 04/13/24 05:00 Temperature Pulse Rate Respiratory Rate 18 Blood Pressure 103/60 Pulse Oximetry Oxygen Delivery Method MDM - Abdominal Pain Lab Data Attestation: I reviewed the patient's lab results. Lab results narrative: White blood cell count 8400, hemoglobin 13.2, platelets adequate. Basic metabolic panel with BUN elevation 27 with normal creatinine, otherwise unremarkable. Liver functions and lipase normal. 04/13/24 00:37 04/13/24 00:37 Labs: Lab Results 04/13/24 Range/Units 00:37 WBC 8.4 (4.5-11.0) X10^3/uL RBC 4.47 L (4.5-5.9) X10^6/uL Hgb 13.2 L (13.5-17.5) g/dL Hct 39.2 L (41-53) % MCV 87.6 (80-100) fL MCH 29.6 (26-34) PG MCHC 33.8 (30-36) % RDW 13.3 (11.6-14.8) % Plt Count 250 (150-400) X10^3/uL Neut % (Auto) 67.9 (50-75) % Lymph % (Auto) 22.4 L (25-40) % [place] % (Auto) 8.8 (3-14) % Eos % (Auto) 0.6 L (2-4) % Baso % (Auto) 0.3 (0-2) % Neut # (Auto) 5700 (8285-6456) /uL Lymph # (Auto) 1900 (1920-8295) /uL [place] # (Auto) 700 (0-900) /uL Eos # (Auto) 0 (0-450) /uL Baso # (Auto) 0 (0-100) /uL Sodium 139 (137-145) mmol/L Potassium 3.7 (3.4-5.1) mmol/L Chloride 106 (98-107) mmol/L Carbon Dioxide 24 (22-32) mmol/L BUN 27 H (9-20) mg/dL Creatinine 0.74 (0.66-1.25) mg/dL Estimated GFR > 60 (>60) mL/min BUN/Creatinine Ratio 36.5 H (6-22) Glucose 115 H (70-100) mg/dL Calcium 10.1 (8.4-10.2) mg/dL Total Bilirubin 0.3 (0.2-1.3) mg/dL AST 38 (17-59) IU/L ALT 27 (<50) IU/L Alkaline Phosphatase 54 (38-126) U/L Total Protein 8.0 (6.3-8.2) g/dL Albumin 5.0 (3.5-5.0) g/dL Globulin 3.0 (1.7-4.1) g/dL Albumin/Globulin Ratio 1.7 (1.0-2.8) Lipase 174 (23-300) U/L [facility] Narrative Medical decision making narrative: 18-year-old male with history of bipolar disorder not taking his regular medications, complains of abdominal pain for the last week or so, thin appearing, nondistended, no tenderness on examination. Screening labs sent from triage unremarkable. X-ray single view abdomen order. Abdominal 1V XRay shows lots colonic stool, no obstructive pattern. Trial of lactulose first dose now, Rx sent to his pharmacy for further dose. Advised will get loose stools from lactulose, drink plenty of fluids to stay hydrated. Recheck with PCP if not better next couple days. Also encouraged to take his bipolar meds or at least reconnect with his mental health providers. DC home, return precaustions discussed. Discharge Plan Departure Patient Disposition: Home Clinical Impression: Abdominal pain, Constipation, History of bipolar disorder Activity Restrictions/Additional Instructions: Mr Perez, Abdominal pain, last normal bowel movement about one-week ago. No trauma or injury or new activities. No fever on triage. Symptoms seemed to be better without specific treatment here in the emergency department. Abdominal exam without tenderness, without distention. Single-view x-ray abdomen showed a lot of colonic stool, symptoms consistent with constipation. You had used a powder [id number] medication unclear if that was MiraLax. We will give prescription for lactulose to help constipation symptoms, 1st dose in the emergency department, prescription sent to your pharmacy. Drink plenty of fluids and try to stay hydrated, as this can help prevent constipation. You have history of bipolar disorder, having not been taking your medications for a while, not appearing manic at this time, but consider restarting your medications for bipolar disorder, discuss this further with your mental health providers. Recheck abdominal symptom complaints if not improved in the next couple of days with laxative therapy. Return earlier for any change worsening symptoms or any concerns prior. Thank you for allowing our team to assess you today. Prescriptions: New lactulose 10 gram/15 mL solution 20 g PO BID Qty: 300 0RF No Action lorazepam 0.5 mg tablet 0.5 mg PO DAILY PRN (Reason: anxiety) Qty: 2 0RF risperidone 0.25 mg tablet 0.25 mg PO DAILY gabapentin 600 mg tablet PO BID hydroxyzine pamoate 25 mg capsule PO BID Patient Comments: [NO ORIGINAL SIG] Referrals: Helena Calvillo MD [Primary Care Provider] - Stand Alone Forms: Patient Portal/API/Survey
--- NOTE | 2024-04-13 05:40 | DI.RAD.S_ITS ---
PROCEDURE: XR ABDOMEN 1V INDICATIONS: abd pain TECHNIQUE: One view of the abdomen acquired. COMPARISON: None. FINDINGS: Surgical changes and devices: None. Bowel: Bowel gas pattern is normal. Moderate colonic stool load. Soft tissues: No suspicious abdominal calcifications. Visualized solid organ contours appear normal in size. Bones: No suspicious bony lesions. IMPRESSION: Moderate colonic stool load. Agree with preliminary report. Dictated by: Bernardino Denson M.D. on 04/13/2024 at 8:55 Approved by: Bernardino Denson M.D. on 04/13/2024 at 8:55
[2024-04-13] MEDS: LACTULOSE 20 GM/30 ML SOLUTION PO (06:07)
== END 2024-04-13 06:16 | disposition home or self-care (01) ==
PROVIDERS: Emergency Provider Emergency Medicine; PCP Family Medicine
DX: R10.9 Unspecified abdominal pain (principal); K59.00 Constipation, unspecified; F31.9 Bipolar disorder, unspecified; F17.290 Nicotine dependence, other tobacco product, uncomplicated
CPT/HCPCS: 36415; 74018; 80053; 83690; 85025; 99283; 99284

== ENCOUNTER 2024-06-19 10:49 | Emergency (ER) | payer OTHER, SELFPAY ==
[2024-06-19] VITALS (7 sets, daily range): BP systolic 96–129; BP diastolic 64–80; PULSE 56–69; RESP 18; TEMP 37.1; O2SAT 98–100; BMI 17.2
[2024-06-19 11:37] LABS: Add Manual Diff / Slide Review NO; Basophils Absolute Auto 0 /uL (0-100); Basophils Percent Auto 0.7 % (0-2); Eosinophils Absolute Auto 100 /uL (0-450); Hematocrit 42.8 % (41-53); Hemoglobin 14.3 g/dL (13.5-17.5); Lymphocytes Absolute Auto 1400 /uL (1100-4500); Mean Corpuscular HGB Conc 33.4 % (30-36); Mean Corpuscular Hemoglobin 29.6 PG (26-34); Mean Corpuscular Volume 88.6 fL (80-100); Monocytes Absolute Auto 500 /uL (0-900); Monocytes Percent Auto 8.4 % (3-14); Neutrophils Absolute Auto 4100 /uL (1500-7000); Neutrophils Percent Auto 65.9 % (50-75); Platelet Count 283 X10^3/uL (150-400); Red Blood Cell Count 4.83 X10^6/uL (4.5-5.9); Red Cell Distribution Width 13.3 % (11.6-14.8); White Blood Cell Count 6.3 X10^3/uL (4.5-11.0)
[2024-06-19 11:46] LABS: Alanine Aminotransferase 26 IU/L (<50); Albumin 5.2 g/dL (3.5-5.0); Albumin Globulin Ratio 1.7 (1.0-2.8); Alkaline Phosphatase 52 U/L (38-126); Aspartate Aminotransferase 31 IU/L (17-59); BUN Creatinine Ratio 21.8 (6-22); Bilirubin Total 1.1 mg/dL (0.2-1.3); Blood Urea Nitrogen 17 mg/dL (9-20); Calcium 9.7 mg/dL (8.4-10.2); Carbon Dioxide 26 mmol/L (22-32); Chloride 104 mmol/L (98-107); Estimated Glomerular Filt Rate > 60 mL/min (>60); Glucose 83 mg/dL (70-99); HEMOLYSIS 18 (0-50); Lipase 69 U/L (23-300); Potassium 4.1 mmol/L (3.4-5.1); Sodium 139 mmol/L (137-145); Total Protein 8.2 g/dL (6.3-8.2)
--- NOTE | 2024-06-19 12:34 | ED.ABDPAIN ---
HPI - Abdominal Pain General Chief Complaint: Abdominal Pain Stated Complaint: [facility] ref: 5days since BM Time Seen by Provider: 06/19/24 12:33 Source: patient, RN notes reviewed and old records reviewed Mode of arrival: Ambulatory Limitations: no limitations History of Present Illness HPI narrative: 19-year-old male history of bipolar disorder presents with a complaint of abdominal discomfort and constipation. Notes small hard stools for the past several days. Describes pain has a little bit more left-sided and suprapubic. No fevers. No nausea or vomiting. No chest pain or shortness of breath. Denies any dysuria urgency or frequency. No testicular pain. No new back or flank pain. Patient states has had issues with constipation and abdominal pain in the past. He continues to take his medications for his bipolar recently had his lithium increased 1-2 weeks ago because he was having little bit of a manic episode. He states it has been helpful. He was supposed to have his lithium level rechecked. Denies any abdominal surgeries in the past. Denies any allergies to medications. Vapes tobacco, no alcohol, no recreational or IV drugs. Patient has tried lactulose for the past 2-3 days she was had in the past. He was not tried any other medications to help with bowel movements. Related Data Home Medications Medication Instructions Recorded Confirmed cholecalciferol (vitamin D3) 250 250 mcg PO DAILY 05/27/24 06/19/24 mcg (10,000 unit) capsule risperidone 0.5 mg tablet 0.5 mg PO DAILY 06/19/24 06/19/24 Previous Rx's Medication Instructions Recorded risperidone 1 mg tablet 1 mg PO DAILY #30 tabs 05/03/24 lithium carbonate 150 mg capsule See Rx Instructions .Route 05/27/24 .COMPLEX #120 caps pregabalin 50 mg capsule 50 mg PO TID anxiety #90 caps 06/10/24 propranolol 10 mg tablet 10 mg PO TID PRN anxiety #90 tabs 06/10/24 Allergies Allergy/AdvReac Type Severity Reaction Status Date / Time banana Allergy Swelling Verified 06/19/24 11:16 of Lip/Tongue/Throat Review of Systems Review of Systems ROS Unobtainable: All systems reviewed & are unremarkable except as noted in HPI and below Patient History Medical History Nicotine dependence due to vaping non-tobacco product Alcohol use disorder, moderate, in early remission RO[place]ARIE (generalized anxiety disorder) Schizoaffective disorder, bipolar type Depression Migraine with aura and without status migrainosus, not intractable (05/05/17) Social History Smoking Status: Current every day smoker second hand exposure: No alcohol intake: never substance use type: does not use Smoking Status: Current every day smoker tobacco type: vaping alcohol intake frequency: 3 or more drinks per day Alcohol type: beer and hard liquor Exam Narrative Exam Narrative: GENERAL: Alert and oriented x three, male in mild distress HEENT: Head normocephalic, atraumatic, EOMI, pupils reactive, face symmetric, moist mucous membranes NECK: Supple, full range of motion CARDIOVASCULAR: Regular rate and rhythm without murmurs, rubs or gallops. RESPIRATORY: Breath sounds equal bilaterally, no wheezes rales or rhonchi. ABDOMEN: Soft, slightly tender left lower quadrant. Nondistended. Normoactive bowel sounds all 4 quadrants. No guarding or rebound, rigidity, no mass : No CVA tenderness EXTREMITIES: Normal range of motion, no clubbing or edema. Neurovascularly intact NEUROLOGICAL: Cranial nerves II through XII grossly intact. Moving all extremities SKIN: Warm, dry, no petechiae, no rashes or lesions. Initial Vital Signs Initial Vital Signs: Vital Signs Temperature 98.8 F 06/19/24 11:11 Pulse Rate 63 06/19/24 11:11 Respiratory Rate 18 06/19/24 11:11 Blood Pressure 123/80 06/19/24 11:11 Pulse Oximetry 100 06/19/24 11:11 Oxygen Delivery Method Room Air 06/19/24 11:11 Course Orders Ordered: ED Orders 06/19/24 11:26 Complete Blood Count AUTO DIFF Stat Comprehensive Metabolic Panel Stat Lipase Stat [place] Stat Discontinued Medications Acetaminophen (Acetaminophen 325 Mg Tablet) 650 mg PO NOW ONE Stop: 06/19/24 13:19 Last Admin: 06/19/24 13:43 Dose: 650 mg Documented By: RB Ibuprofen (Ibuprofen 400 Mg Tablet) 400 mg PO NOW ONE Stop: 06/19/24 13:19 Last Admin: 06/19/24 13:42 Dose: 400 mg Documented By: RB Ondansetron HCl (Ondansetron 4 Mg/2 Ml Inj) 4 mg IV NOW PRN PRN Reason: Nausea And Vomiting Ondansetron HCl (Ondansetron 4 Mg Odt) 4 mg PO NOW PRN PRN Reason: Nausea And Vomiting Vital Signs Vital signs: Vital Signs - 8 hr 06/19/24 11:11 06/19/24 11:18 06/19/24 11:18 Temperature 98.8 F Pulse Rate 63 63 Respiratory Rate 18 Blood Pressure 123/80 96/69 Pulse Oximetry 100 98 Oxygen Delivery Method Room Air 06/19/24 11:30 06/19/24 11:30 06/19/24 12:00 Temperature Pulse Rate 62 Respiratory Rate Blood Pressure 129/78 112/64 Pulse Oximetry 100 Oxygen Delivery Method 06/19/24 12:00 06/19/24 12:30 06/19/24 12:30 Temperature Pulse Rate 56 L 59 L Respiratory Rate Blood Pressure 98/64 Pulse Oximetry 99 100 Oxygen Delivery Method 06/19/24 13:00 06/19/24 13:00 06/19/24 13:30 Temperature Pulse Rate 69 57 L Respiratory Rate Blood Pressure 112/73 Pulse Oximetry 100 100 Oxygen Delivery Method 06/19/24 13:30 Temperature Pulse Rate Respiratory Rate Blood Pressure 109/67 Pulse Oximetry Oxygen Delivery Method MDM - Abdominal Pain Lab Data 06/19/24 11:26 06/19/24 11:26 Labs: Lab Results 06/19/24 Range/Units 11:26 WBC 6.3 (4.5-11.0) X10^3/uL RBC 4.83 (4.5-5.9) X10^6/uL Hgb 14.3 (13.5-17.5) g/dL Hct 42.8 (41-53) % MCV 88.6 (80-100) fL MCH 29.6 (26-34) PG MCHC 33.4 (30-36) % RDW 13.3 (11.6-14.8) % Plt Count 283 (150-400) X10^3/uL Neut % (Auto) 65.9 (50-75) % Lymph % (Auto) 23.0 L (25-40) % [place] % (Auto) 8.4 (3-14) % Eos % (Auto) 2.0 (2-4) % Baso % (Auto) 0.7 (0-2) % Neut # (Auto) 4100 (0800-6472) /uL Lymph # (Auto) 1400 (3134-7223) /uL [place] # (Auto) 500 (0-900) /uL Eos # (Auto) 100 (0-450) /uL Baso # (Auto) 0 (0-100) /uL Sodium 139 (137-145) mmol/L Potassium 4.1 (3.4-5.1) mmol/L Chloride 104 (98-107) mmol/L Carbon Dioxide 26 (22-32) mmol/L BUN 17 (9-20) mg/dL Creatinine 0.78 (0.66-1.25) mg/dL Estimated GFR > 60 (>60) mL/min BUN/Creatinine Ratio 21.8 (6-22) Glucose 83 (70-99) mg/dL Calcium 9.7 (8.4-10.2) mg/dL Total Bilirubin 1.1 (0.2-1.3) mg/dL AST 31 (17-59) IU/L ALT 26 (<50) IU/L Alkaline Phosphatase 52 (38-126) U/L Total Protein 8.2 (6.3-8.2) g/dL Albumin 5.2 H (3.5-5.0) g/dL Globulin 3.0 (1.7-4.1) g/dL Albumin/Globulin Ratio 1.7 (1.0-2.8) Lipase 69 (23-300) U/L [place] 0.4 L (0.6-1.2) mmol/L Point of care testing: Urine Dip Bedside Urine Glucose Negative Bedside Urine Bilirubin - Negative Bedside Urine Ketone - Negative Urine Specific [place] 1.010 Bedside Urine Occult Blood - Negative Bedside Urine pH 6.0 Bedside Urine Protein - Negative Bedside Urine Urobilinogen +/- 1mg Bedside Urine Nitrite - Negative Bedside Urine Leukocytes - Negative Esterase MDM Narrative Medical decision making narrative: Labs show normal hemoglobin, platelets and white count, electrolytes, BUN creatinine are all normal. [place] level is low at 0.4. Point of care urine shows urobilinogen, negative for leuks or nitrates. Discussed findings with the patient. Discussed imaging as his tenderness has a little bit left lower quadrant although very mild. He feels comfortable with some Tylenol ibuprofen here and some additional stool softeners as he was having bowel movements although small and hard. Did discuss if his symptoms are worsening, he was fevers he should return for repeat evaluation to evaluate for diverticulitis or other source of his pain. No obvious urinary source. Did check a lithium level as he had a recent to his lithium, today's level is low. Patient states it has been helpful for his symptoms. We will have patient follow up with his [facility] physician to continue to follow his lithium levels as needed. Discharge Plan Departure Patient Disposition: Home Clinical Impression: Constipation Instructions: DI for Abdominal Pain-Adult Activity Restrictions/Additional Instructions: Follow up for recheck if your symptoms are not improving. Your lithium level today is a little low at 0.4 You can take acetaminophen up to a 1000 mg every 6 hours and/or ibuprofen up to 600 mg every 6 hours as needed for pain. Continue with your lactulose, I would add MiraLax once daily and if necessary you can add Dulcolax once or 2 times daily. Make sure you are drinking plenty of fluids, it also recommend high-fiber foods such as watermelon, cherries, apples, etc. You can use a glycerin suppository if you feel there is stool close to the rectal opening. Please return for fevers, worsening abdominal back or flank pain, vomiting, black or bloody stools, inability to pass gas or have a bowel movement for 24+ hours, new testicular pain or other new or concerning changes. Prescriptions: No Action risperidone 0.5 mg tablet 0.5 mg PO DAILY cholecalciferol (vitamin D3) 250 mcg (10,000 unit) capsule 250 mcg PO DAILY lithium carbonate 150 mg capsule See Rx Instructions .ROUTE .COMPLEX Qty: 120 2RF Rx Instructions: Take one capsule by mouth twice per day for one week, then increase to one capsule in the morning and two capsules at night for one week, then increase two capsules twice per day thereafter. Have lithium level drawn at least 5 days after final dose increase. pregabalin 50 mg capsule 50 mg PO TID Qty: 90 2RF propranolol 10 mg tablet 10 mg PO TID PRN (Reason: anxiety ) Qty: 90 0RF Rx Instructions: start with half tablet up to three times per day risperidone 1 mg tablet 1 mg PO DAILY Qty: 30 2RF Referrals: Helena Calvillo MD [Primary Care Provider] - Stand Alone Forms: Patient Portal/API/Survey
[2024-06-19 13:36] LABS: Lithium 0.4 mmol/L (0.6-1.2)
[2024-06-19] MEDS: IBUPROFEN 400 MG TABLET PO (13:42)
[2024-06-19] MEDS: ACETAMINOPHEN 325 MG TABLET 650 MG PO (13:43)
== END 2024-06-19 13:56 | disposition home or self-care (01) ==
PROVIDERS: Emergency Provider Emergency Medicine; PCP Family Medicine
DX: K59.00 Constipation, unspecified (principal); R10.9 Unspecified abdominal pain
CPT/HCPCS: 36415; 80053; 80178; 81003; 83690; 85025; 99283

== ENCOUNTER 2024-06-21 09:03 | Emergency (ER) | payer OTHER, SELFPAY ==
[2024-06-21 09:18] VITALS: BP 114/69; PULSE 66; RESP 18; TEMP 37; O2SAT 98; BMI 17.2
--- NOTE | 2024-06-21 10:19 | ED_ITS ---
HPI - Abdominal Pain General Chief Complaint: Abdominal Pain Stated Complaint: Haven't been able to have a BM for 7 days Time Seen by Provider: 06/21/24 09:57 History of Present Illness HPI narrative: 19-year-old gentleman her bipolar disorder presents for re-evaluation of abdominal discomfort and constipation despite being on Mag citrate MiraLax enemas lactulose with no significant relief of his symptoms with only a marble size stool on bowel movement. Patient still feels abdominal cramps and not having a good bowel movement at this point. He reports this all started 2 months ago with relief with lactulose but that is not the case now. Pt denies any chest pain, shortness of breath, cough, runny nose, sore throat, worsening back pain, penile discharge, or testicular pain. Related Data Home Medications Medication Instructions Recorded Confirmed cholecalciferol (vitamin D3) 250 250 mcg PO DAILY 05/27/24 06/19/24 mcg (10,000 unit) capsule risperidone 0.5 mg tablet 0.5 mg PO DAILY 06/19/24 06/19/24 Previous Rx's Medication Instructions Recorded risperidone 1 mg tablet 1 mg PO DAILY #30 tabs 05/03/24 lithium carbonate 150 mg capsule See Rx Instructions .Route 05/27/24 .COMPLEX #120 caps pregabalin 50 mg capsule 50 mg PO TID anxiety #90 caps 06/10/24 propranolol 10 mg tablet 10 mg PO TID PRN anxiety #90 tabs 06/10/24 peg 3350-electrolytes 236 240 ml PO Q10M #4,000 mL 06/21/24 gram-22.74 gram-6.74 gram-5.86 gram solution (Golytely) Allergies Allergy/AdvReac Type Severity Reaction Status Date / Time banana Allergy Swelling Verified 06/19/24 11:16 of Lip/Tongue/Throat Review of Systems Review of Systems ROS Unobtainable: All systems reviewed & are unremarkable except as noted in HPI and below Patient History Medical History Nicotine dependence due to vaping non-tobacco product Alcohol use disorder, moderate, in early remission ROSEMARIE (generalized anxiety disorder) Schizoaffective disorder, bipolar type Depression Migraine with aura and without status migrainosus, not intractable (05/05/17) Social History Smoking Status: Current every day smoker second hand exposure: No alcohol intake: never substance use type: does not use Smoking Status: Current every day smoker tobacco type: vaping alcohol intake frequency: 3 or more drinks per day Alcohol type: beer and hard liquor Exam Narrative Exam Narrative: GENERAL: [19] year old patient appears stated age. Well-developed patient, in mild distress. HEAD: Atraumatic. Normocephalic. EYES: Pupils equal round and reactive. Extraocular motions intact. No scleral icterus. No injection or drainage. ENT: Nose without bleeding, purulent drainage. Throat without erythema, tonsillar hypertrophy or exudate. Airway patent. NECK: Trachea midline. Non tender CARDIOVASCULAR: Regular rate and rhythm without murmurs, gallops, or rubs. RESPIRATORY: Clear to auscultation. Breath sounds equal bilaterally. No wheezes, rales, or rhonchi. GASTROINTESTINAL: Abdomen soft, non-tender, nondistended. EXTREMITIES: No edema or joint tenderness. BACK: Nontender without deformity or crepitance. No flank tenderness. NEURO: AOx3. SKIN: No rash or erythema of visible areas Initial Vital Signs Initial Vital Signs: Vital Signs Temperature 98.6 F 06/21/24 09:18 Pulse Rate 66 06/21/24 09:18 Respiratory Rate 18 06/21/24 09:18 Blood Pressure 114/69 06/21/24 09:18 Pulse Oximetry 98 06/21/24 09:18 Oxygen Delivery Method Room Air 06/21/24 09:18 Course Orders Ordered: ED Orders 06/21/24 10:19 CT abdomen pelvis wo con Stat Vital Signs Vital signs: Vital Signs - 8 hr 06/21/24 09:18 Temperature 98.6 F Pulse Rate 66 Respiratory Rate 18 Blood Pressure 114/69 Pulse Oximetry 98 Oxygen Delivery Method Room Air MDM - Abdominal Pain Imaging Data CT scan - abdomen/pelvis: Radiologist's Impression: [address] [address] [address] Scan Report Signed Patient: Jose J Perez MR#: [id number] : 2005 Acct:[id number] Age/Sex: 19 / M Date of Service: 06/21/24 Loc: ED Accession Number: [id number] Procedure: CT abdomen pelvis wo con Ordering Provider: Newton Negron D.O. PROCEDURE: CT ABDOMEN PELVIS WO CON INDICATIONS: abd pain/constipation TECHNIQUE: Axial sections were acquired from the lung bases to the pubic symphysis. Coronal and sagittal reformats were performed. For radiation dose reduction, the following was used: automated exposure control, adjustment of mA and/or kV according to patient size. COMPARISON: None. FINDINGS: Image quality: Diagnostic. Lower Chest: No significant findings. URINARY: Right Kidney: No stones or hydronephrosis. Right Ureter: No hydroureter. Left Kidney: No stones or hydronephrosis. Left Ureter: No hydroureter. Bladder: Normal wall thickness. No stones. ABDOMEN: Liver: No contour-deforming solid mass. Gallbladder: No radiopaque gallstones or wall thickening. Biliary ducts: No biliary dilation. Pancreas: No ductal dilation. Spleen: Size is within normal limits. Adrenal Glands: No adrenal nodules. Stomach and Bowel: Normal colonic caliber, without significant wall thickening. Moderate stool burden. Normal appendix. Peritoneum: No abnormal intraperitoneal fluid. No free air. Ventral Wall: No hernia. Abdominal Nodes: No enlarged retroperitoneal or mesenteric lymph nodes. Vessels: Aorta and inferior vena cava are normal in size. PELVIS: Pelvic Organs: Unremarkable. Pelvic Nodes: Unremarkable. Miscellaneous: No inguinal hernias are seen. Bones: Unremarkable. IMPRESSION: 1. No acute findings within the abdomen or pelvis. 2. Moderate stool burden. Dictated by: Irving Gardner M.D. on 06/21/2024 at 10:40 Approved by: Irving Gardner M.D. on 06/21/2024 at 10:45 [facility] Narrative Medical decision making narrative: Vital signs nurse triage note medication list previous ER visits all imaging modalities in all ER visits reviewed. Patient given GoLYTELY here and to continue on Mag citrate lactulose as needed until patient has sufficient bowel movement. Differential diagnosis includes constipation dehydration UTI. Return with new or worsening symptoms. Discharge Plan Departure Patient Disposition: Home Clinical Impression: Constipation Qualifiers: Constipation type: slow transit constipation Qualified Code(s): K59.01 - Slow transit constipation Instructions: DI for Constipation Activity Restrictions/Additional Instructions: Return with new or worsening symptoms. Take your medicines as directed. Increase fruits and vegetables and fiber to your diet and keep hydrated. Follow up with PCP in 1-2 weeks if no improvement in symptoms. Prescriptions: New peg 3350-electrolytes [Golytely] 236-22.74-6.74 -5.86 gram recon soln 240 ml PO Q10M Qty: 4000 0RF Rx Instructions: until fecal effluent is clear No Action risperidone 0.5 mg tablet 0.5 mg PO DAILY cholecalciferol (vitamin D3) 250 mcg (10,000 unit) capsule 250 mcg PO DAILY lithium carbonate 150 mg capsule See Rx Instructions .ROUTE .COMPLEX Qty: 120 2RF Rx Instructions: Take one capsule by mouth twice per day for one week, then increase to one capsule in the morning and two capsules at night for one week, then increase two capsules twice per day thereafter. Have lithium level drawn at least 5 days after final dose increase. pregabalin 50 mg capsule 50 mg PO TID Qty: 90 2RF propranolol 10 mg tablet 10 mg PO TID PRN (Reason: anxiety ) Qty: 90 0RF Rx Instructions: start with half tablet up to three times per day risperidone 1 mg tablet 1 mg PO DAILY Qty: 30 2RF Referrals: Helena Calvillo MD [Primary Care Provider] - Stand Alone Forms: Patient Portal/API/Survey
[2024-06-21] MEDS: PEG3350/SOD SULF,BICARB,CL/KCL 4,000 ML SOLUTION 4000 ML PO (11:29)
[2024-06-21 11:35] VITALS: BP 114/57; PULSE 71; RESP 16; O2SAT 97
== END 2024-06-21 11:33 | disposition home or self-care (01) ==
PROVIDERS: Emergency Provider Family Medicine; PCP Family Medicine
DX: K59.01 Slow transit constipation (principal)
CPT/HCPCS: 74176; 99283; 99284

== ENCOUNTER → 2024-12-22 12:57 | Outpatient (CLI) | payer OTHER, SELFPAY ==
[2024-12-22 13:56] LABS: Hemoglobin A1C% w Est Avg Glu 5.7 % (4.0-6.0)
[2024-12-22 14:23] LABS: Alanine Aminotransferase 21 IU/L (<50); Albumin 5.0 g/dL (3.5-5.0); Albumin Globulin Ratio 1.7 (1.0-2.8); Alkaline Phosphatase 60 U/L (38-126); Blood Urea Nitrogen 12 mg/dL (9-20); Calcium 10.0 mg/dL (8.4-10.2); Carbon Dioxide 28 mmol/L (22-32); Chloride 101 mmol/L (98-107); Cholesterol 144 mg/dL (140-199); Estimated Glomerular Filt Rate > 60 mL/min (>60); Globulin 2.9 g/dL (1.7-4.1); Glucose 81 mg/dL (70-99); HDL Cholesterol 65 mg/dL (40-60); HEMOLYSIS < 15 (0-50); Potassium 4.7 mmol/L (3.4-5.1); Sodium 137 mmol/L (137-145); Total Protein 7.9 g/dL (6.3-8.2); Triglycerides 103 mg/dL (35-150)
[2024-12-22 14:36] LABS: Vitamin D 25 Hydroxy (D3) 37.0 ng/mL (30.0-100.0)
[2024-12-22 15:09] LABS: Vitamin B12 Reflex MMA if <400 679 pg/mL (239-931)
[2024-12-22 15:52] LABS: Folate 4.6 ng/mL (2.76-20.0)
== END ==
PROVIDERS: PCP Family Medicine; Referring Provider Student in an Organized Health Care Education/Training Program; Visit Provider Student in an Organized Health Care Education/Training Program
DX: F10.21 Alcohol dependence, in remission (principal); F25.0 Schizoaffective disorder, bipolar type; E55.9 Vitamin D deficiency, unspecified
CPT/HCPCS: 36415; 80053; 80061; 82306; 82607; 82746; 83036